=== PATIENT | female | born 1945 ===

== ENCOUNTER → 2019-07-08 10:55 | Outpatient (BNVA) | payer OTHER, SELFPAY | PROVIDERS: Family Provider Family Medicine; PCP Family Medicine; Visit Provider Nurse Practitioner | DX: R30.0 Dysuria (principal); N39.0 Urinary tract infection, site not specified | CPT/HCPCS: 81003 ==

== ENCOUNTER → 2019-07-23 13:38 | Outpatient (BNVA) | payer OTHER, SELFPAY | PROVIDERS: Family Provider Family Medicine; PCP Family Medicine; Visit Provider Nurse Practitioner Family | DX: N39.0 Urinary tract infection, site not specified (principal) | CPT/HCPCS: 81001 ==

== ENCOUNTER → 2019-11-05 12:49 | Outpatient (BNVA) | payer OTHER, SELFPAY | PROVIDERS: Family Provider Family Medicine; PCP Family Medicine; Visit Provider Urology | DX: N39.0 Urinary tract infection, site not specified (principal) | CPT/HCPCS: 81001 ==

== ENCOUNTER 2019-12-24 06:00 | Outpatient (RCR) | payer OTHER, SELFPAY | END 2020-01-06 23:59 | disposition home or self-care (01) | LOC: WPT 06:00 | PROVIDERS: PCP Family Medicine; Referring Provider Family Medicine; Visit Provider Family Medicine | DX: G89.29 Other chronic pain (principal); M25.511 Pain in right shoulder | CPT/HCPCS: 97110; 97161 ==

== ENCOUNTER → 2019-12-25 10:43 | Outpatient (BNVA) | payer OTHER, SELFPAY | PROVIDERS: Family Provider Family Medicine; PCP Family Medicine; Visit Provider Anesthesiology | DX: M54.42 Lumbago with sciatica, left side (principal); Z79.891 Long term (current) use of opiate analgesic | CPT/HCPCS: 99213; 99214 ==

== ENCOUNTER 2020-01-07 06:00 | Outpatient (RCR) | payer OTHER, SELFPAY | END 2020-02-05 23:59 | disposition home or self-care (01) | LOC: WPT 06:00 | PROVIDERS: PCP Family Medicine; Referring Provider Family Medicine; Visit Provider Family Medicine | DX: G89.29 Other chronic pain (principal); M25.511 Pain in right shoulder | CPT/HCPCS: 97110; 97112; 97140 ==

== ENCOUNTER → 2020-03-20 09:26 | Outpatient (BNVA) | payer OTHER, SELFPAY | PROVIDERS: PCP Family Medicine; Visit Provider Anesthesiology | DX: M54.42 Lumbago with sciatica, left side (principal); Z79.891 Long term (current) use of opiate analgesic | CPT/HCPCS: 99212; 99214 ==

== ENCOUNTER → 2020-06-29 11:39 | Outpatient (BNVA) | payer OTHER, SELFPAY | PROVIDERS: PCP Family Medicine; Visit Provider Obstetrics & Gynecology | DX: N81.10 Cystocele, unspecified (principal); N81.6 Rectocele | CPT/HCPCS: 87086 ==

== ENCOUNTER → 2020-07-03 10:05 | Outpatient (BNVA) | payer OTHER, SELFPAY | PROVIDERS: PCP Family Medicine; Visit Provider Anesthesiology | DX: M54.42 Lumbago with sciatica, left side (principal); Z79.891 Long term (current) use of opiate analgesic | CPT/HCPCS: 99213 ==

== ENCOUNTER → 2020-09-25 09:53 | Outpatient (BNVA) | payer OTHER, SELFPAY | PROVIDERS: PCP Family Medicine; Visit Provider Anesthesiology | DX: M54.42 Lumbago with sciatica, left side (principal); Z79.891 Long term (current) use of opiate analgesic | CPT/HCPCS: 99213 ==

== ENCOUNTER → 2020-11-04 13:53 | Outpatient (BNVA) | payer OTHER, SELFPAY | PROVIDERS: PCP Family Medicine; Visit Provider Nurse Practitioner Family | DX: N39.0 Urinary tract infection, site not specified (principal) | CPT/HCPCS: 81003; 87086 ==

== ENCOUNTER → 2020-12-17 13:17 | Outpatient (BNVA) | payer OTHER, SELFPAY | PROVIDERS: PCP Family Medicine; Visit Provider Nurse Practitioner Family | DX: N39.0 Urinary tract infection, site not specified (principal) | CPT/HCPCS: 81003 ==

== ENCOUNTER → 2021-01-01 09:50 | Outpatient (BNVA) | payer OTHER, SELFPAY | PROVIDERS: PCP Family Medicine; Visit Provider Anesthesiology | DX: M54.42 Lumbago with sciatica, left side (principal); Z79.891 Long term (current) use of opiate analgesic | CPT/HCPCS: 99213 ==

== ENCOUNTER → 2021-03-26 10:45 | Outpatient (BNVA) | payer OTHER, SELFPAY | PROVIDERS: PCP Family Medicine; Visit Provider Anesthesiology | DX: M54.42 Lumbago with sciatica, left side (principal); Z79.891 Long term (current) use of opiate analgesic; Z87.891 Personal history of nicotine dependence | CPT/HCPCS: 99213 ==

== ENCOUNTER → 2021-12-21 11:23 | Outpatient (BNVA) | payer OTHER, SELFPAY | PROVIDERS: PCP Family Medicine; Visit Provider Nurse Practitioner Family | DX: N39.0 Urinary tract infection, site not specified (principal) | CPT/HCPCS: 81003; 87086 ==

== ENCOUNTER → 2022-01-12 11:23 | Outpatient (BNVA) | payer OTHER, SELFPAY | PROVIDERS: PCP Family Medicine; Visit Provider Nurse Practitioner Family | DX: R33.9 Retention of urine, unspecified (principal); N39.0 Urinary tract infection, site not specified | CPT/HCPCS: 81003 ==

== ENCOUNTER → 2022-02-22 13:40 | Outpatient (BNVA) | payer OTHER, SELFPAY | PROVIDERS: PCP Family Medicine; Visit Provider Urology | DX: N39.0 Urinary tract infection, site not specified (principal) | CPT/HCPCS: 81003 ==

== ENCOUNTER → 2022-07-19 10:16 | Outpatient (BNVA) | payer OTHER, SELFPAY | PROVIDERS: PCP Family Medicine; Visit Provider Urology | DX: N39.0 Urinary tract infection, site not specified (principal) | CPT/HCPCS: 81003 ==

== ENCOUNTER → 2022-09-29 09:13 | Outpatient (BNVA) | payer OTHER, SELFPAY | PROVIDERS: PCP Family Medicine; Visit Provider Podiatrist Foot & Ankle Surgery | DX: L60.8 Other nail disorders (principal); L60.0 Ingrowing nail; M21.611 Bunion of right foot; M21.612 Bunion of left foot; L84 Corns and callosities; M20.41 Other hammer toe(s) (acquired), right foot; M20.42 Other hammer toe(s) (acquired), left foot | CPT/HCPCS: 11750 ==

== ENCOUNTER → 2022-10-13 11:17 | Outpatient (BNVA) | payer OTHER, SELFPAY | PROVIDERS: PCP Family Medicine; Visit Provider Podiatrist Foot & Ankle Surgery | DX: L60.0 Ingrowing nail (principal); M21.611 Bunion of right foot; M21.612 Bunion of left foot; L84 Corns and callosities | CPT/HCPCS: 99213 ==

== ENCOUNTER 2023-02-07 23:25 | Emergency (ER) | payer OTHER, SELFPAY ==
[2023-02-07 23:26] VITALS: BP 146/98; PULSE 98; RESP 16; TEMP 36.7; O2SAT 92; BMI 27.6
--- NOTE | 2023-02-07 23:26 | XRR_ITS ---
PROCEDURE INFORMATION: Exam: XR Chest Exam date and time: 02/07/2023 11:31 PM Age: 77 years old Clinical indication: Chest wall pain; Additional info: Cp TECHNIQUE: Imaging protocol: Radiologic exam of the chest. Views: 1 view. COMPARISON: No relevant prior studies available. FINDINGS: Lungs: Unremarkable. No consolidation. Pleural spaces: Unremarkable. No pleural effusion. No pneumothorax. Heart/Mediastinum: Unremarkable. No cardiomegaly. Atherosclerotic calcifications are seen in the thoracic aorta. There is no mediastinal widening. Bones/joints: Unremarkable. XR/XR chest 1V portable [id number] IMPRESSION: No acute findings.
--- NOTE | 2023-02-07 23:27 | ECG_ITS ---
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 Measurements Intervals [place] Rate: 96 P: 65 AR: 189 QRS: 35 QRSD: 142 T: 31 QT: 373 QTc: 472 Interpretive Statements SINUS RHYTHM RIGHT BUNDLE BRANCH BLOCK [120+ ms QRS DURATION, UPRIGHT V1, 40+ ms S IN I/aVL/V4/V5/V6] No previous ECG available for comparison Electronically Signed On 02-08-2023 8:27:03 CDT by Kaleb Gandara M.D. [id number]
--- NOTE | 2023-02-07 23:34 | ED_ITS ---
HPI - Chest Pain General: Chief Complaint: Chest Pain Stated Complaint: CP Time Seen by Provider: 02/07/23 23:26 Source: patient and EMS Mode of arrival: EMS Limitations: no limitations History of Present Illness: Patient is a 77-year-old female who presents to the emergency room via EMS with chest pain. Patient reports that she takes marijuana Gummies usually nightly. Tonight, patient accidentally took 2 rather than normal 1 and developed chest pain 30 minutes later. Patient does have a history of bundle branch block and sees Dr. Barrientos. Patient self administered 1 sublingual nitroglycerin at home and called EMS. Patient received 325 ASA and 1 sublingual nitro in route via EMS. Patient denies any chest pain at this time. Patient does report that she has some nausea and her extremities feel weak. No other complaints at this time. MD complaint: chest pain Onset (ago): hour(s) (1-2) Prior episodes: No Pain location: left chest Severity: mild Associated symptoms: Reports nausea and palpitations; Deny abdominal pain, dyspnea, fever(s) or vomiting Review of Systems Const: Denies: fever(s) or chills Eyes: Denies: change in vision or blurry vision ENMT: Denies: throat pain or mouth pain Card: Reports: chest pain, palpitations and lightheadedness Resp: Denies: dyspnea or productive cough GI: Reports: nausea; Denies: abdominal pain or vomiting : Denies: flank pain or difficulty voiding Musc: Denies: neck pain or back pain Skin/Breast: Denies: rash Neuro: Denies: headache(s) Psych: Reports: anxiety PFSH ED PFSH: Medical History Chronic kidney disease Encounter for long-term use of opiate analgesic HTN (hypertension) Hyperlipidemia Low back pain with left-sided sciatica Opioid contract exists PVC (premature ventricular contraction) RBBB Recurrent UTI Surgical History Hx of appendectomy Family History Mother , at age 64 breast cancer CAD (coronary artery disease) Cancer Diabetes Hyperlipidemia Hypertension Heart disease Breast cancer Father CAD (coronary artery disease) at age 89 Hyperlipidemia Hypertension Stroke Heart disease Brother CAD (coronary artery disease) Renal insufficiency Diabetes Hyperlipidemia Hypertension Heart disease Denies family history of Colon cancer Ovarian cancer Bleeding disorder Uterine cancer Social History Smoking and tobacco status: former smoker Second hand smoke exposure: No Alcohol intake: never Substance/Drug Use: never Adopted: No Marital status: Current occupational status: retired Physical Exam Const: COMMON NORMALS: no acute distress, patient oriented x3 and alert GENERAL APPEARANCE: cooperative ORIENTATION/CONSCIOUSNESS: Yes awake HENMT: COMMON NORMALS: normocephalic HEAD & SCALP: normocephalic FACE & SINUS: normal facial exam Eye: COMMON NORMALS: Equal, round and reactive pupils present and EOMs intact bilaterally PUPIL: Yes Equal, round and reactive pupils present Neck/C-Spine: COMMON NORMALS: full ROM and no JVD Lymph: LYMPHATIC: no lymphadenopathy noted Chest: CHEST: Yes Symmetrical chest wall rise Resp: COMMON NORMALS: normal respiratory effort and clear to auscultation bilaterally EFFORT & INSPECTION: Yes symmetric chest movement AUSC ULTATION: clear to auscultation bilaterally Cardio: COMMON NORMALS: no JVD, regular rate, S1 normal heart sound present and Peripheral pulses 2+ throughout JUGULAR VENOUS DISTENTION: no JVD RA TE: regular rate HEART SOUNDS: S1 normal heart sound present PERIPHERAL PULSES: Peripheral pulses 2+ throughout GI: COMMON NORMALS: Normal to inspection, nondistended, normoactive bowel sounds present : COMMON NORMALS: Yes no CVA tenderness BLADDER/KIDNEY EXAM: Yes no CVA tenderness Back/Pelvis: COMMON NORMALS: no CVA tenderness Neuro: COMMON NORMALS: patient oriented x3 SENSORIUM/ORIENTATION: Yes alert Course Vital Signs: Vital signs: Vital Signs Temperature 98.0 F 02/07/23 23:26 Pulse Rate 76 02/08/23 01:30 Respiratory Rate 12 02/08/23 00:30 Blood Pressure 132/69 02/08/23 01:30 Pulse Oximetry 94 02/08/23 01:30 Oxygen Delivery Me thod Room Air 02/08/23 01:30 MDM - Chest Pain Medical Decision Making Patient presents here with chest pains atypical in nature troponins here are negative patient stable for discharge she is to follow-up PCP and return if worsening she understands agrees to plan. Medical Records I reviewed the patient's medical records. Lab Data I reviewed the patient's lab results. 02/07/23 22:23 02/07/23 22:23 Radiology Impressions Chest X-Ray 02/07/23 23:26 IMPRESSION: No acute findings. Laboratory Results WBC 7.61 10^3/uL (3.29-11.43) 02/07/23 22: RBC 4.28 10^6/uL (3.85-5.65) 02/07/23 22: Hgb 13.10 g/dL (11.27-16.99) 02/07/23 22:23 Hct 38.9 % (36-47) 02/07/23 22: MCV 90.9 fl (85-98) 02/07/23 22: MCH 30.6 pg (27-33) 02/07/23 22: MCHC 33.7 g/dL (30-55) 02/07/23 22: RDW 12.9 % (12.1-15.1) 02/07/23 22: Plt Count 259 10^3/cmm (157-399) 02/07/23 22: MPV 9.1 fL (7.4-10.4) 02/07/23 22: Neut % (Auto) 43.1 % 02/07/23 22: Lymph % (Auto) 44.5 % 02/07/23 22:23 [place] % (Auto) 8.1 % 02/07/23 22: Eos % (Auto) 3.3 % 02/07/23 22:23 Baso % (Auto) 0.9 % 02/07/23: Neut # (Auto) 3.27 10^3/uL (1.8-7.7) 02/07/23 22: Lymph # (Auto) 3.4 10^3/uL (0.8-4.8) 02/07/23: [place] # (Auto) 0.6 10^3/uL (0.2-0.9) 02/07/23 22:23 Eos # (Auto) 0.3 10^3/uL (0.0-0.8) 02/07/23 22:23 Baso # (Auto) 0.1 10^3/uL (0.0-0.1) 02/07/23 22:23 Nucleated RBC % (auto) 0 % 02/07/23 22: Nucleated RBCs # 0.0 /100WBC 02/07/23 22:23 Sodium 140 mmol/L (136-145) 02/07/23 22:23 Potassium 3.8 mmol/L (3.5-5.1) 02/07/23 22:23 Chloride 101 mmol/L (98-107) 02/07/23 22:23 Carbon Dioxide 28 mmol/L (22-29) 02/07/23 22:23 Anion Gap 14.8 (5-19) 02/07/23 22:23 BUN 15 mg/dL (8-23) 02/07/23 22: Creatinine 1.1 mg/dL (0.5-0.9) H 02/07/23 22: GFR Calculation Not Reportable 02/07/23 22: Glucose 141 mg/dL (65-115) H 02/07/23 22:23 Calculated Osmolality 293 mOsm/kg (285-295) 02/07/23 22: Calcium 9.0 mg/dL (8.5-10.5) 02/07/23 22: Total Bilirubin 0.6 mg/dL (0.15-1.2) 02/07/23 22: AST 27 U/L (0-32) 02/07/23 22: ALT 17 U/L (0-33) 02/07/23 22: Alkaline Phosphatase 144 U/L (35-105) H 02/07/23 22:23 Troponin T Baseline 8 ng/L (0-10) 02/07/23 22: Troponin T 120 Minute 8.13 ng/L (0-10) 02/08/23 01:15 Delta Troponin T 0.13 ABS# (0-10) 02/08/23 01:15 Total Protein 7.4 g/dL (6.6-8.7) 02/07/23 22: Albumin 4.4 g/dL (3.5-5.2) 02/07/23 22: Globulin 3.0 g/dL (1.3-4.6) 02/07/23 22:23 All radiology interpretation(s) finalized by discharge Discharge Plan Discharge Patient Disposition: Home Clinical Impression: Chest pain Condition: Stable Prescriptions: No Action pregabalin 75 mg capsule 75 mg PO BID atorvastatin 20 mg tablet 20 mg PO DAILY losartan 50 mg tablet 50 mg PO DAILY citalopram 10 mg tablet 10 mg PO DAILY PRN furosemide 20 mg tablet 20 mg PO DAILY levothyroxine 25 mcg capsule 25 mcg PO DAILY ciprofloxacin HCl [Cipro] 500 mg tablet 500 mg PO BID PRN metoprolol tartrate 25 mg tablet 12.5 mg PO BID PRN (Reason: tachycardia) Qty: 30 6RF docusate sodium [Stool Softener] 100 mg capsule 100 mg PO BID PRN tramadol 50 mg tablet 50 mg PO QID PRN (Reason: pain) 30 Days Qty: 120 1RF Rx Instructions: fill on or after 07/17/21 and 08/16/21 polyethylene glycol 3350 [Miralax] 17 gram/dose powder 4 g PO DAILY mupirocin 2 % ointment 1 applic topical BID 14 Days Qty: 22 2RF cephalexin 500 mg capsule 500 mg PO BID 7 Days Qty: 14 0RF Discharge Orders: Discharge ED (Routine); Ordered 02/08/23 Ordered By: Kika Moran Referrals: Yaw Resendiz [Primary Care Provider] - 1-3 days Discharge Diet: Advance as tolerated Discharge Activity: Resume usual activity Patient Instructions: Chest Pain (ED) Coding Level of Care Code ED [employer] Washing for Xochitl Gil
[2023-02-08] VITALS: BP 143/74; PULSE 91; RESP 12; O2SAT 92
[2023-02-08 00:01] LABS: Troponin(5th) Baseline 8 ng/L (0-10)
[2023-02-08 00:30] VITALS: BP 140/85; PULSE 88; RESP 12; O2SAT 91
[2023-02-08 00:49] LABS: Basophils # 0.1 10^3/uL (0.0-0.1); Basophils % 0.9 %; Eosinophils # 0.3 10^3/uL (0.0-0.8); Eosinophils % 3.3 %; Hematocrit 38.9 % (36-47); Lymphocytes # 3.4 10^3/uL (0.8-4.8); Lymphocytes % 44.5 %; Mean Corpuscular HGB Conc 33.7 g/dL (30-55); Mean Corpuscular Hemoglobin 30.6 pg (27-33); Mean Corpuscular Volume 90.9 fl (85-98); Mean Platelet Volume 9.1 fL (7.4-10.4); Monocytes # 0.6 10^3/uL (0.2-0.9); Monocytes % 8.1 %; Neutrophils # 3.27 10^3/uL (1.8-7.7); Neutrophils % 43.1 %; Nucleated Red Blood Cells % 0 %; Platelet Count 259 10^3/cmm (157-399); Red Blood Count 4.28 10^6/uL (3.85-5.65); Red Cell Distribution Width 12.9 % (12.1-15.1); White Blood Count 7.61 10^3/uL (3.29-11.43)
[2023-02-08 01:00] VITALS: BP 138/81; PULSE 79; O2SAT 94
[2023-02-08 01:04] LABS: Alanine Aminotransferase 17 U/L (0-33); Albumin Level 4.4 g/dL (3.5-5.2); Alkaline Phosphatase 144 U/L (35-105); Anion Gap 14.8 (5-19); Aspartate Amino Transferase 27 U/L (0-32); Blood Urea Nitrogen 15 mg/dL (8-23); Carbon Dioxide 28 mmol/L (22-29); Chloride 101 mmol/L (98-107); Glucose 141 mg/dL (65-115); Osmolality Calculated 293 mOsm/kg (285-295); Potassium 3.8 mmol/L (3.5-5.1); Sodium 140 mmol/L (136-145); Total Bilirubin 0.6 mg/dL (0.15-1.2); Total Protein 7.4 g/dL (6.6-8.7)
--- NOTE | 2023-02-08 01:27 | ECG_ITS ---
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 Measurements Intervals [place] Rate: 77 P: 58 [place]: 199 QRS: 0 QRSD: 145 T: 17 QT: 396 QTc: 450 Interpretive Statements SINUS RHYTHM RIGHT BUNDLE BRANCH BLOCK [120+ ms QRS DURATION, UPRIGHT V1, 40+ ms S IN I/aVL/V4/V5/V6] No previous ECG available for comparison Electronically Signed On 02-08-2023 8:27:35 CDT by Kaleb Gandara M.D. [id number]
[2023-02-08 01:30] VITALS: BP 132/69; PULSE 76; O2SAT 94
[2023-02-08 01:55] LABS: Troponin 5 2HR 8.13 ng/L (0-10); Troponin 5 2HR Delta 0.13 ABS# (0-10)
[2023-02-08 02:03] VITALS: BP 133/65; PULSE 75; RESP 16; O2SAT 95
== END 2023-02-08 02:03 | disposition home or self-care (01) ==
PROVIDERS: Emergency Provider Emergency Medicine; PCP Family Medicine
DX: R07.9 Chest pain, unspecified (principal); Z87.891 Personal history of nicotine dependence; I12.9 Hypertensive chronic kidney disease with stage 1 through stage 4 chronic kidney disease, or unspecified chronic kidney disease; N18.9 Chronic kidney disease, unspecified; E78.5 Hyperlipidemia, unspecified
CPT/HCPCS: 36415; 71045; 80053; 84484; 85025; 93005; 99285